=== PATIENT | male | born 1945 | race Caucasian/White ===

== ENCOUNTER 2021-07-17 12:43 | Observation (INO) | payer MEDICARE, OTHER ==
[2021-07-17 14:04] LABS: Absolute Neutrophil Ct (ANC) 6.16 x10^3/uL (1.4-6.9); Basophil (Absolute #) 0.03 x10^3/uL (0-0.4); Eosinophil % 1.1 % (0.00-5.0); Eosinophil (Absolute #) 0.09 x10^3/uL (0-0.5); Hematocrit 46.4 % (42-50); Lymphocyte (Absolute #) 1.04 x10^3/uL (1.0-4.6); Lymphocytes % 12.9 % (24.0-44.0); Mean Cell Volume 87.5 fL (78-100); Mean Corpuscular Hemoglobin 30.2 pg (26-32); Mean Corpuscular Hgb Concent. 34.5 g/dL (32-36); Mean Platelet Volume 10.4 fL (7.5-11.0); Monocyte (Absolute #) 0.73 x10^3/uL (0.0-1.3); Neutrophil % 76.1 % (36.0-66.0); Platelet Count 227 x10^3/uL (150-450); Red Cell Distribution Width 13.4 % (11.5-14.0); White Blood Count 8.1 x10^3/uL (4.0-10.5)
[2021-07-17 14:09] LABS: ALBUMIN 3.6 g/dL (3.5-5.0); ALKALINE PHOSPHATASE 60 U/L (38-126); ANION GAP 12.5 MEQ/L (5-15); BLOOD UREA NITROGEN 10 mg/dL (9-20); CHLORIDE 92 mmol/L (98-107); Carbon Dioxide 26 mmol/L (22-30); Creatinine 1 0.87 mg/dL (0.66-1.25); EST GLOMERULAR FILTRATION RATE > 60.0 ML/MIN; Glucose 83 mg/dL (74-106); Potassium 4.4 mmol/L (3.5-5.1); SGOT/AST 27 U/L (17-59); SGPT/ALT 19 U/L (0-50); SODIUM 126 mmol/L (137-145); Total Protein 6.2 g/dL (6.3-8.2)
[2021-07-17] MEDS ORDERED: Sodium Chloride 0.9% 1000 ML 1,000 ML IV STA (15:19)
[2021-07-17] MEDS ORDERED: Sodium Chloride 0.9% 1000 ML 1,000 ML ONE (15:21)
--- NOTE | 2021-07-17 15:25 | ERPHSYRPT ---
- History of Present Illness Time Seen by Provider: 07/17/21 13:10 Source: patient Exam Limitations: no limitations Patient Subjective Stated Complaint: pt states "I went to [facility] yesterday. I had labs drawn and they called today and said my sodium was low." Triage Nursing Assessment: pt ambulated into the er; pt is axo x4; c/o abdnormal labs; pt states [employer] called with low sodium levels; pt denies pain; pt states he feels weak; clear distant apical heart tone; inspiratory wheezing present in all lobes; strong isabel radial pulses; weak isabel pedal pulses; hypertensive Physician History: Patient is a 76-year-old male presents to our ED as a referral from his primary care doctor. Patient states he had routine labs drawn today per Leigh Ann Miguel. Patient states that he was later notified and advised to come to our ED for evaluation and treatment of abnormal lab value. Patient's sodium was 127. Patient states he has been feeling very weak. Weakness is generalized no focal or lateralizing symptoms. Symptoms are progressive. Symptoms are moderate in intensity. No specific worsening improving factors. Patient denies pain. No nausea no vomiting no diarrhea. No rash. No dizziness. Patient voices no other complaints or concerns at this time. Timing/Duration: today Severity: moderate Modifying Factors: Improves With: nothing Associated Symptoms: weakness (Generalized weakness), No nausea, No vomiting, No shortness of breath, No diaphoresis, No chest pain, No fever Allergies/Adverse Reactions: morphine Adverse Reaction (Verified 07/17/21 13:07) Headache Home Medications: Aspirin 81 gm Chew [Baby Aspirin 81 mg Chew] DAILY 08/06/12 [History] Clonazepam 0.5 mg [Klonopin 0.5 MG] 0.5 mg PO BID 08/06/12 [History] Gabapentin [Neurontin 300 mg] TID 08/06/12 [History] Hydrocodone/Acetaminophen [Vicodin 5-300 mg Tablet] 1 each PO PRN 08/06/12 [History] Metformin HCl 250 mg PO BID 08/06/12 [History] Omeprazole 20 MG [Prilosec 20 mg] 20 mg PO DAILY 08/06/12 [History] Hx Tetanus, Diphtheria Vaccination/Date Given: Yes Hx Influenza Vaccination/Date Given: Yes Hx Pneumococcal Vaccination/Date Given: No Travel Risk - International Travel Have you traveled outside of the country in past 3 weeks: No - Coronavirus Screening Are you exhibiting any of the following symptoms?: No Close contact with a COVID-19 positive Pt in past 14-21 Days: No - Vaccine Status Have you recieved a Covid-19 vaccination: Yes Qm Consultant: Moderna - Vaccination Dates Date of 2cond Vaccination (if applicable): unknown - Review of Systems Constitutional: No Symptoms, No Fever, No Chills Eyes: No Symptoms Ears, Nose, & Throat: No Symptoms Respiratory: No Symptoms, No Cough, No Dyspnea Cardiac: No Symptoms, No Chest Pain, No Edema, No Syncope Abdominal/Gastrointestinal: No Symptoms, No Abdominal Pain, No Nausea, No Vomiting, No Diarrhea Genitourinary Symptoms: No Symptoms, No Dysuria Musculoskeletal: No Symptoms, No Back Pain, No Neck Pain Skin: No Symptoms, No Rash Neurological: No Symptoms, No Dizziness, No Focal Weakness, No Sensory Changes Psychological: No Symptoms Endocrine: No Symptoms Hematologic/Lymphatic: No Symptoms Immunological/Allergic: No Symptoms All Other Systems: Reviewed and Negative - Past Medical History Pertinent Past Medical History: Yes Cardiac History: Hypertension Respiratory History: COPD Endocrine Medical History: Diabetes Type II Psycho-Social History: Anxiety, Bipolar - Past Surgical History Past Surgical History: Yes Other Surgical History: cyst removal on left side of neck - Social History Smoking Status: Current every day smoker Exposure to second hand smoke: Yes Drug Use: none Patient Lives Alone: No - Nursing Vital Signs Nursing Vital Signs: Initial Vital Signs Temperature 97.6 F 07/17/21 12:55 Pulse Rate 72 07/17/21 12:55 Respiratory Rate 20 07/17/21 12:55 Blood Pressure 166/100 07/17/21 12:55 O2 Sat by Pulse Oximetry 96 07/17/21 12:55 Pain Scale Pain Intensity 0 - Physical Exam General Appearance: no apparent distress, alert Eye Exam: PERRL/EOMI, eyes nml inspection Ears, Nose, Throat Exam: normal ENT inspection, TMs normal, pharynx normal, m oist mucous membranes Neck Exam: normal inspection, non-tender, supple, full range of motion Respiratory Exam: normal breath sounds, lungs clear, airway intact, No respiratory distress Cardiovascular Exam: regular rate/rhythm, normal heart sounds, normal peripheral pulses Gastrointestinal/Abdomen Exam: soft, normal bowel sounds, No tenderness, No mass Back Exam: normal inspection, normal range of motion, No CVA tenderness, No vertebral tenderness Extremity Exam: normal inspection, normal range of motion, pelvis stable Neurologic Exam: alert, oriented x 3, cooperative, normal mood/affect, nml cerebellar function, nml station & gait, sensation nml, No motor deficits Skin Exam: normal color, warm, dry, No rash Lymphatic Exam: No adenopathy SpO2 Interpretation: normal SpO2: 98 O2 Delivery: Room Air - Course Nursing assessment & vital signs reviewed: Yes EKG Interpreted by Me: RATE (71), Sinus Rhythm, NORMAL AXIS, NORMAL INTERVALS, 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) Ordered Tests: Active Orders 24 hr Category Date Time Status Up With Assistance ROUTINE Activity 07/17/21 16:50 Active Supervisor Cigar Making Hand STAT Care 07/17/21 13:41 Active Code Status Order ROUTINE Care 07/17/21 16:50 Active EKG-ER Only STAT Care 07/17/21 13:41 Active IV Care Q6H Care 07/17/21 16:50 Active IV Insertion STAT Care 07/17/21 13:41 Active Neuro Checks Q4H Care 07/17/21 16:[address] in Observation ROUTINE Care 07/17/21 16:50 Active Pulse Oximetry (ED) STAT Care 07/17/21 13:41 Active Telemetry q6h Care 07/17/21 16:50 Active Heart-Healthy Diet Diet 07/17/21 Breakfast Active CBC W DIFF AM.LAB Lab 07/18/21 04:00 Ordered CBC W DIFF Stat Lab 07/17/21 13:55 Completed CMP AM.LAB Lab 07/18/21 04:00 Ordered CMP Stat Lab 07/17/21 13:55 Completed TROPONIN Q3H Lab 07/17/21 13:55 Completed TROPONIN Q3H Lab 07/17/21 16:25 Received TROPONIN Q3H Lab 07/17/21 19:45 Ordered TROPONIN Q3H Lab 07/17/21 22:45 Ordered TROPONIN Q3H Lab 07/18/21 01:45 Ordered UA W/RFX CULTURE Stat Lab 07/17/21 15:37 Completed Pulse Oximetry CONTINUOUS RT 07/17/21 16:52 Active Medication Summary Generic Name Dose Route Start Last Admin Trade Name Freq PRN Reason Stop Dose Admin Sodium Chloride 1,000 mls @ 100 mls/hr 07/17/21 17:00 Sodium Chloride 0.9% 1000 Ml IV 08/16/21 16:59 .Q10H EFREN Ondansetron HCl 4 mg 07/17/21 16:50 Ondansetron Hcl 4 Mg/2 Ml Vial IV 08/16/21 16:49 Q6H PRN PRN NAUSEA/VOMITING Discontinued Medications Generic Name Dose Route Start Last Admin Trade Name Freq PRN Reason Stop Dose Admin Sodium Chloride 1,000 mls @ 999 mls/hr 07/17/21 15:19 07/17/21 15:22 Sodium Chloride 0.9% 1000 Ml IV 07/17/21 16:19 999 mls/hr .Q1H1M STA Administration Sodium Chloride Confirm 07/17/21 15:21 Sodium Chloride 0.9% 1000 Ml Administered 07/17/21 15:22 Dose 1,000 mls @ ud .ROUTE .STK-MED ONE Lab/Rad Data: Laboratory Result Diagrams 07/17/21 13:55 07/17/21 13:55 Laboratory Results 07/17/21 07/17/21 07/17/21 Range/Units 15:37 15:30 13:55 WBC (4.0-10.5) x10^3/uL RBC (4.1-5.6) x10^6/uL Hgb (12.5-18.0) g/dL Hct (42-50) % MCV (78-100) fL MCH (26-32) pg MCHC (32-36) g/dL RDW (11.5-14.0) % Plt Count (150-450) x10^3/uL MPV (7.5-11.0) fL Gran % (36.0-66.0) % Immature Gran % (Auto) (0.00-0.4) % Nucleat RBC Rel Count (0.00-0.1) % Eos # (Auto) (0-0.5) x10^3/uL Immature Gran # (Auto) (0.00-0.03) x10^3u/L Absolute Lymphs (auto) (1.0-4.6) x10^3/uL Absolute Monos (auto) (0.0-1.3) x10^3/uL Absolute Nucleated RBC (0.00-0.01) x10^3u/L Lymphocytes % (24.0-44.0) % Monocytes % (0.0-12.0) % Eosinophils % (0.00-5.0) % Basophils % (0.0-0.4) % Absolute Granulocytes (1.4-6.9) x10^3/uL Basophils # (0-0.4) x10^3/uL Sodium (137-145) mmol/L Potassium (3.5-5.1) mmol/L Chloride (98-107) mmol/L Carbon Dioxide (22-30) mmol/L Anion Gap (5-15) MEQ/L BUN (9-20) mg/dL Creatinine (0.66-1.25) mg/dL Estimated GFR ML/MIN Glucose (74-106) mg/dL Calcium (8.4-10.2) mg/dL Total Bilirubin (0.2-1.3) mg/dL AST (17-59) U/L ALT (0-50) U/L Alkaline Phosphatase (38-126) U/L Troponin I 0.021 (0.000-0.034) ng/mL Serum Total Protein (6.3-8.2) g/dL Albumin (3.5-5.0) g/dL Urinalys Dipstick Clnc MAIN LAB Urine Color YELLOW (YELLOW) Urine Appearance CLEAR (CLEAR) Urine pH 7.0 (5-6) Ur Specific [place] 1.010 (1.005-1.025) POC Urine Protein Conf NEGATIVE (Negative) Urine Ketones TRACE (NEGATIVE) Urine Nitrite NEGATIVE (NEGATIVE) Urine Bilirubin NEGATIVE (NEGATIVE) Urine Urobilinogen 1 (0-1) mg/dL Urine Leukocytes NEGATIVE (NEGATIVE) Urine WBC (Auto) NONE (0-5) /HPF Urine RBC (Auto) NONE (0-2) /HPF U Epithel Cells (Auto) NONE (FEW) /HPF Urine Bacteria (Auto) NONE (NEGATIVE) /HPF Urine RBC NEGATIVE (0-5) Eyad/ul Ur Culture Indicated? NO Urine Glucose NEGATIVE (NEGATIVE) mg/dL Influenza Type A Ag NEGATIVE (NEGATIVE) Influenza Type B Ag NEGATIVE (NEGATIVE) RSV (PCR) NEGATIVE (Negative) SARS-CoV-2 (PCR) NEGATIVE (NEGATIVE) 07/17/21 07/17/21 Range/Units 13:55 13:55 WBC 8.1 (4.0-10.5) x10^3/uL RBC 5.30 (4.1-5.6) x10^6/uL Hgb 16.0 (12.5-18.0) g/dL Hct 46.4 (42-50) % MCV 87.5 (78-100) fL MCH 30.2 (26-32) pg MCHC 34.5 (32-36) g/dL RDW 13.4 (11.5-14.0) % Plt Count 227 (150-450) x10^3/uL MPV 10.4 (7.5-11.0) fL Gran % 76.1 H (36.0-66.0) % Immature Gran % (Auto) 0.5 H (0.00-0.4) % Nucleat RBC Rel Count 0.0 (0.00-0.1) % Eos # (Auto) 0.09 (0-0.5) x10^3/uL Immature Gran # (Auto) 0.04 H (0.00-0.03) x10^3u/L Absolute Lymphs (auto) 1.04 (1.0-4.6) x10^3/uL Absolute Monos (auto) 0.73 (0.0-1.3) x10^3/uL Absolute Nucleated RBC 0.00 (0.00-0.01) x10^3u/L Lymphocytes % 12.9 L (24.0-44.0) % Monocytes % 9.0 (0.0-12.0) % Eosinophils % 1.1 (0.00-5.0) % Basophils % 0.4 (0.0-0.4) % Absolute Granulocytes 6.16 (1.4-6.9) x10^3/uL Basophils # 0.03 (0-0.4) x10^3/uL Sodium 126 L (137-145) mmol/L Potassium 4.4 (3.5-5.1) mmol/L Chloride 92 L (98-107) mmol/L Carbon Dioxide 26 (22-30) mmol/L Anion Gap 12.5 (5-15) MEQ/L BUN 10 (9-20) mg/dL Creatinine 0.87 (0.66-1.25) mg/dL Estimated GFR > 60.0 ML/MIN Glucose 83 (74-106) mg/dL Calcium 9.0 (8.4-10.2) mg/dL Total Bilirubin 0.80 (0.2-1.3) mg/dL AST 27 (17-59) U/L ALT 19 (0-50) U/L Alkaline Phosphatase 60 (38-126) U/L Troponin I (0.000-0.034) ng/mL Serum Total Protein 6.2 L (6.3-8.2) g/dL Albumin 3.6 (3.5-5.0) g/dL Urinalys Dipstick Clnc Urine Color (YELLOW) Urine Appearance (CLEAR) Urine pH (5-6) Ur Specific [place] (1.005-1.025) POC Urine Protein Conf (Negative) Urine Ketones (NEGATIVE) Urine Nitrite (NEGATIVE) Urine Bilirubin (NEGATIVE) Urine Urobilinogen (0-1) mg/dL Urine Leukocytes (NEGATIVE) Urine WBC (Auto) (0-5) /HPF Urine RBC (Auto) (0-2) /HPF U Epithel Cells (Auto) (FEW) /HPF Urine Bacteria (Auto) (NEGATIVE) /HPF Urine RBC (0-5) Eyad/ul Ur Culture Indicated? Urine Glucose (NEGATIVE) mg/dL Influenza Type A Ag (NEGATIVE) Influenza Type B Ag (NEGATIVE) RSV (PCR) (Negative) SARS-CoV-2 (PCR) (NEGATIVE) - Progress Progress: improved Progress Note: Patient reassessed. Work-up reveals hyponatremia. Fluids initiated. Patient on free water restriction. Patient complaining of profound generalized weakness. Case discussed with Dr. Stern who accepts admission to observation. Plan of care discussed with patient. He agrees to admission at [facility] for further evaluation and treatment. Portions of this note were created with voice recognition technology. There may be grammatical, spelling, punctuation or sound alike errors 07/17/21 16:55 Discussed with : Vale Will see patient in: hospital (observation) Counseled pt/family regarding: lab results, diagnosis, rad results - Departure Departure Disposition: Observation Clinical Impression: Hyponatremia, Generalized weakness Condition: Stable Critical Care Time: No Referrals: MICHAEL STERN [Primary Care Provider] - Follow up/PCP as directed
[2021-07-17 16:37] LABS: Appearance CLEAR (CLEAR); Bilirubin NEGATIVE (NEGATIVE); Dipstick done @ ? MAIN LAB; Glucose NEGATIVE (NEGATIVE); Ketones TRACE (NEGATIVE); Nitrite NEGATIVE (NEGATIVE); Protein,Urine Dip NEGATIVE (Negative); RBC NEGATIVE Ery/ul (0-5); Urobilinogen 1 mg/dL (0-1)
[2021-07-17 16:42] LABS: Urine Cultured Indicated? NO
[2021-07-17 16:42] LABS: INFLUENZA A NEGATIVE (NEGATIVE); INFLUENZA B NEGATIVE (NEGATIVE); RESPIRATORY SYNCTIAL VIRUS NEGATIVE (Negative); SARS-CoV-2 Xpert Express NEGATIVE (NEGATIVE)
[2021-07-17] MEDS ORDERED: Zofran 4 MG/2 ML VIAL IV PRN (16:50)
[2021-07-17] MEDS: Sodium Chloride 0.9% 1000 ML 1,000 ML IV SCH ×2 (17:09→21:31)
[2021-07-17] MEDS ORDERED: TYLENOL EXTRA STRENGTH 500 MG PO PRN (20:52)
[2021-07-17] MEDS ORDERED: Nicoderm CQ 21 MG TOP SCH (21:00)
[2021-07-17] MEDS: Ditropan 5 MG PO SCH (21:32)
[2021-07-17] MEDS ORDERED: xanAX 0.5 MG PO PRN (22:00)
[2021-07-17] MEDS ORDERED: ZOCOR 20MG PO SCH (22:00)
[2021-07-17] MEDS ORDERED: Glucophage 500 MG PO SCH (22:00)
[2021-07-18 02:45] LABS: Absolute Neutrophil Ct (ANC) 4.39 x10^3/uL (1.4-6.9); Basophil (Absolute #) 0.03 x10^3/uL (0-0.4); Eosinophil (Absolute #) 0.13 x10^3/uL (0-0.5); Hematocrit 48.3 % (42-50); Lymphocyte (Absolute #) 1.26 x10^3/uL (1.0-4.6); Lymphocytes % 19.2 % (24.0-44.0); Mean Cell Volume 90.4 fL (78-100); Mean Corpuscular Hgb Concent. 33.1 g/dL (32-36); Monocyte (Absolute #) 0.72 x10^3/uL (0.0-1.3); Platelet Count 185 x10^3/uL (150-450); Red Blood Count 5.34 x10^6/uL (4.1-5.6); Red Cell Distribution Width 13.5 % (11.5-14.0); White Blood Count 6.6 x10^3/uL (4.0-10.5)
[2021-07-18 02:56] LABS: ALBUMIN 3.2 g/dL (3.5-5.0); ALKALINE PHOSPHATASE 60 U/L (38-126); ANION GAP 9.1 MEQ/L (5-15); BLOOD UREA NITROGEN 8 mg/dL (9-20); CHLORIDE 97 mmol/L (98-107); Calcium 8.3 mg/dL (8.4-10.2); Carbon Dioxide 30 mmol/L (22-30); Creatinine 1 0.88 mg/dL (0.66-1.25); EST GLOMERULAR FILTRATION RATE > 60.0 ML/MIN; Glucose 80 mg/dL (74-106); Potassium 4.1 mmol/L (3.5-5.1); SGOT/AST 28 U/L (17-59); SGPT/ALT 17 U/L (0-50); SODIUM 132 mmol/L (137-145)
[2021-07-18] MEDS: Sodium Chloride 0.9% 1000 ML 1,000 ML IV SCH (05:28)
[2021-07-18] MEDS ORDERED: TADALAFIL 20 MG PO PRN (07:44)
[2021-07-18] MEDS: Ditropan 5 MG PO SCH (07:46)
[2021-07-18] MEDS ORDERED: Glucophage 500 MG PO SCH (08:00)
[2021-07-18] MEDS ORDERED: MEDICATION INTERVENTION MC SCH (08:00)
--- NOTE | 2021-07-18 08:59 | SSS ---
DISCHARGE DIAGNOSIS: HYPONATREMIA. HISTORY: The patient is a 76-year-old white male patient who just had not been feeling good. He presented to the office and seen Leigh Ann Block who thought he might be having a lung infection and ordered some labs and he was found to have a sodium in the mid 120's. He was instructed due to this to go to the emergency room where he was found to be confirmed to be 127 on his sodium. Otherwise no specific problems were found. The patient was admitted to the hospital for IV saline and fluid restriction to correct his hyponatremia. PAST MEDICAL HISTORY: The patient's medical history is significant for anxiety, chronic pain, diabetes mellitus type II, gastroesophageal reflux disease. He has a history of chronic obstructive pulmonary disease, hypertension, diabetes mellitus type II. PAST SURGICAL HISTORY: He had a cyst removed from his back. HOME MEDICATIONS: Alprazolam 0.5 mg twice a day, Abilify 10 mg daily, fluoxetine 20 mg daily, gabapentin 300 mg t.i.d., lovastatin 40 mg at night and Metformin 500 mg b.i.d., omeprazole 20 mg a day, oxybutynin 5 mg t.i.d., Prazosin 2 mg at night, Tadalafil 20 mg PRN for erectile dysfunction. ALLERGIES: MORPHINE. PHYSICAL EXAMINATION: The patient's vital signs in the emergency room showed his temperature to be 97.6F, pulse 72, respiratory rate 20 and blood pressure 166/100. O2 saturation 96%. HEENT: Normocephalic, atraumatic. Pupils equal round reactive to light. Extraocular movements intact. Oropharynx is pink and moist. NECK: Supple without lymphadenopathy, thyromegaly or JVD. CHEST: Clear to auscultation. HEART: Regular rate and rhythm. ABDOMEN: Soft without palpable masses. EXTREMITIES: Without cyanosis, clubbing or edema. NEUROLOGIC: The patient is alert and oriented x3. However, he could not give me the President. He could give me the date, time and place without any difficulty. LAB DATA AND TESTS: The patient's laboratory studies revealed the troponin to be in the normal range 0.025. His CBC is entirely normal. His metabolic panel upon presentation showed his sodium to be 127. His follow up after admission and saline showed him to be up to 132. He had a BUN of 8, creatinine 0.88. His chloride was slightly low at 97. Potassium and CO2 were normal. Liver enzymes were normal. The patient's 12 lead EKG showed right bundle branch block-type pattern with left inferior jeb-block as well and possible left ventricular hypertrophy. HOSPITAL COURSE: After the saline and fluid restriction, the patient's sodium had improved up to 132. The patient reports he uses no salt at home. We felt that he was ready for discharge home again. The patient was feeling well and ready to go. We instructed him to follow up in the office within the next week. We will recheck his sodium. He was asked to add a little light salt to his foods to try to help keep his sodium up. He was instructed that he could drink but not overly indulge in water.
[2021-07-18] MEDS ORDERED: Prozac 20 MG PO SCH (10:00)
[2021-07-18] MEDS ORDERED: Protonix 40MG Tablet PO SCH (10:00)
[2021-07-18] MEDS ORDERED: xanAX 0.5 MG PO SCH (10:00)
[2021-07-18] MEDS ORDERED: NON-FORMULARY ITEM (Omeprazole 20 Mg [Prilosec 20 Mg] 20 MG Capsule.Dr) PO SCH (10:00)
[2021-07-18] MEDS ORDERED: Abilify 10 MG PO SCH (10:00)
[2021-07-18 12:20] VITALS: BP 156/88; PULSE 74; O2SAT 97
[2021-07-18] MEDS ORDERED: Nicoderm CQ 21 MG TOP SCH (22:00)
[2021-07-18] MEDS ORDERED: NON-FORMULARY ITEM (Prazosin Hcl [Prazosin Hcl] 2 MG Capsule) PO SCH (22:00)
== END 2021-07-18 12:45 | disposition home or self-care (01) ==
LOC: ED 12:43 → MED SURG 17:26
PROVIDERS: ADMIT Family Medicine; ATTEND Family Medicine
DX: E87.1 Hypo-osmolality and hyponatremia (principal); F41.9 Anxiety disorder, unspecified; E11.9 Type 2 diabetes mellitus without complications; J44.9 Chronic obstructive pulmonary disease, unspecified; I10 Essential (primary) hypertension; R79.89 Other specified abnormal findings of blood chemistry; Z72.0 Tobacco use; Z79.899 Other long term (current) drug therapy; Z20.828 Contact with and (suspected) exposure to other viral communicable diseases
CPT/HCPCS: 0241U; 36000; 36415; 80053; 81015; 82947; 84484; 85025; 93005; 93041; 94760; 96360; 96361; 99285; 93268; A9270-GY; G0378

== ENCOUNTER 2021-08-28 12:31 | Emergency (ER) | payer MEDICARE, OTHER ==
--- NOTE | 2021-08-28 12:34 | ERPHSYRPT ---
- History of Present Illness Time Seen by Provider: 08/28/21 12:34 Source: patient, EMS Exam Limitations: no limitations Physician History: This is a 76-year-old white male patient of Dr. Stern who was brought into the emergency department by EMS service secondary to shortness of breath that was intermittent and persistent since yesterday. Patient does not use home oxygen therapy. He does have a history of COPD and continues to smoke cigarettes daily. Patient has a history of diabetes, gastroesophageal reflux disease, elevated cholesterol, hypertension, renal disease, anxiety/bipolar disorder. Patient has had recent significant weight loss. Patient denies chest pain. He has no cough. Patient has had his COVID vaccination with boosters. Upon arrival of EMS, patient was placed on 6 L of oxygen via nasal cannula and has an oxygen saturation level of 95%. Patient arrives to the emergency department answering questions. He is awake alert and oriented. He does not appear to be in significant distress. EMS provided the patient with a DuoNeb nebulizer treatment Timing/Duration: yesterday Severity of Dyspnea-Max: moderate Severity of Dyspnea-Current: mild Possible Cause: occasional episodes Modifying Factors: Improves With: activity, exertion, oxygen Associated Symptoms: No chest pain/discomfort Allergies/Adverse Reactions: morphine Adverse Reaction (Verified 07/17/21 13:07) Headache Home Medications: Gabapentin [Neurontin ] 300 mg PO TID 08/06/12 [History] Metformin HCl 500 mg PO BID 08/06/12 [History] Omeprazole 20 MG [Prilosec 20 mg] 20 mg PO DAILY 08/06/12 [History] ALPRAZolam [Alprazolam] 0.5 mg PO BID 07/17/21 [History] Aripiprazole [Abilify] 10 mg PO DAILY 07/17/21 [History] Fluoxetine HCl [Prozac] 20 mg PO DAILY 07/17/21 [History] Lovastatin 40 mg PO HS 07/17/21 [History] Oxybutynin Chloride 5 mg PO TID 07/17/21 [History] Prazosin HCl 2 mg PO HS 07/17/21 [History] Tadalafil [Adcirca] 20 mg PO DAILY PRN PRN 07/17/21 [History] Hx Tetanus, Diphtheria Vaccination/Date Given: Yes Hx Influenza Vaccination/Date Given: Yes Hx Pneumococcal Vaccination/Date Given: No Travel Risk - International Travel Have you traveled outside of the country in past 3 weeks: No - Coronavirus Screening Are you exhibiting any of the following symptoms?: No Close contact with a COVID-19 positive Pt in past 14-21 Days: No - Vaccine Status Have you recieved a Covid-19 vaccination: Yes Relationship Banker: Moderna - Vaccination Dates Date of 2cond Vaccination (if applicable): 05/03/20 Comment: BOOSTER 01/17/21, - Review of Systems Constitutional: No Symptoms Eyes: No Symptoms Ears, Nose, & Throat: No Symptoms Respiratory: Dyspnea, Dyspnea on Exertion (ROMERO) Cardiac: No Symptoms Abdominal/Gastrointestinal: No Symptoms Genitourinary Symptoms: No Symptoms Musculoskeletal: No Symptoms Skin: No Symptoms Neurological: No Symptoms Psychological: No Symptoms Endocrine: No Symptoms Hematologic/Lymphatic: No Symptoms Immunological/Allergic: No Symptoms All Other Systems: Reviewed and Negative - Past Medical History Pertinent Past Medical History: Yes Cardiac History: Hypertension Respiratory History: COPD Endocrine Medical History: Diabetes Type II Musculoskeletal History: Osteoarthritis GI Medical History: No Pertinent History History: Renal Disease Psycho-Social History: Anxiety, Bipolar Male Reproductive Disorders: No Pertinent History - Past Surgical History Past Surgical History: Yes Male Surgical History: Vasectomy Other Surgical History: cyst removal on left side of neck - Social History Smoking Status: Current every day smoker How long have you smoked: 50 YEARS Exposure to second hand smoke: Yes Drug Use: none Patient Lives Alone: No - Nursing Vital Signs Nursing Vital Signs: Initial Vital Signs Temperature 98.4 F 08/28/21 12:34 Pulse Rate 81 08/28/21 12:34 Respiratory Rate 18 08/28/21 12:34 Blood Pressure 153/88 08/28/21 12:34 O2 Sat by Pulse Oximetry 97 08/28/21 12:34 Pain Scale Pain Intensity 0 - Physical Exam General Appearance: no apparent distress, alert Eye Exam: PERRL/EOMI, eyes nml inspection Ears, Nose, Throat Exam: hearing grossly normal, normal ENT inspection Neck Exam: normal inspection, non-tender, supple, full range of motion Respiratory Exam: normal breath sounds, lungs clear, airway intact, No chest tenderness, No respiratory distress Cardiovascular/Chest Exam: normal heart sounds, regular rate/rhythm, normal peripheral pulses Abdominal/Gastrointestinal Exam: soft, normal bowel sounds, No tenderness Rectal Exam: not done Extremity Exam: non-tender, normal range of motion, normal inspection Neurologic Exam: alert, oriented x 3, cooperative, 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, normal mood/affect, sensation nml Skin Exam: normal color, warm, dry Lymphatic Exam: No adenopathy SpO2 Interpretation: normal O2 Delivery: Room Air - Course Nursing assessment & vital signs reviewed: Yes Ordered Tests: Active Orders 24 hr Category Date Time Status EKG-ER Only STAT Care 08/28/21 12:51 Active IV Insertion STAT Care 08/28/21 12:51 Active Pulse Oximetry (ED) STAT Care 08/28/21 12:51 Active ABDOMEN AND PELVIS W&WO CONTRA [CT] Stat Exams 08/28/21 13:05 Completed CHEST 1 VIEW (PORTABLE) Stat Exams 08/28/21 12:52 Completed CBC W DIFF Stat Lab 08/28/21 13:28 Completed CMP Stat Lab 08/28/21 13:28 Completed D-DIMER QUANTITATIVE Stat Lab 08/28/21 13:28 Completed Lactic Acid Stat Lab 08/28/21 13:29 Completed NT PRO BNP Stat Lab 08/28/21 13:28 Completed TROPONIN Q3H Lab 08/28/21 13:00 Ordered TROPONIN Q3H Lab 08/28/21 16:00 Ordered TROPONIN Q3H Lab 08/28/21 19:00 Ordered TROPONIN Q3H Lab 08/28/21 22:00 Ordered TROPONIN Q3H Lab 08/29/21 01:00 Ordered UA W/RFX CULTURE Stat Lab 08/28/21 13:54 Completed Medication Summary Generic Name Dose Route Start Last Admin Trade Name Freq PRN Reason Stop Dose Admin Sodium Chloride 1,000 mls @ 100 mls/hr 08/28/21 14:00 08/28/21 13:56 Sodium Chloride 0.9% 1000 Ml IV 09/27/21 13:59 100 mls/hr .Q10H EFREN Administration Discontinued Medications Generic Name Dose Route Start Last Admin Trade Name Freq PRN Reason Stop Dose Admin Methylprednisolone Sodium 0 mg 08/28/21 12:51 08/28/21 12:56 Succinate 125 mg/ Sterile IV 08/28/21 12:52 125 mg Water 2 ml STAT ONE Administration Furosemide 40 mg 08/28/21 15:32 08/28/21 15:52 Furosemide 40 Mg/4 Ml Vial IV 08/28/21 15:33 40 mg STAT ONE Administration Furosemide Confirm 08/28/21 15:49 Furosemide 40 Mg/4 Ml Vial Administered 08/28/21 15:50 Dose 40 mg .ROUTE .STK-MED ONE Ceftriaxone Sodium/Dextrose 1 g in 50 mls @ 100 mls/hr 08/28/21 15:31 08/28/21 15:52 Rocephin 1 Gm-D5w 50 Ml Bag IV 08/28/21 16:00 100 ml/hr STAT STA 100 mls/hr Administration Ceftriaxone Sodium/Dextrose Confirm 08/28/21 15:49 Rocephin 1 Gm-D5w 50 Ml Bag Administered 08/28/21 15:50 Dose 1 g in 50 mls @ ud IV .STK-MED ONE Methylprednisolone Sodium Succinate Confirm 08/28/21 12:54 Methylprednis Sod Succ 125 Mg/2 Ml Vial Administered 08/28/21 12:55 Dose 125 mg .ROUTE .STK-MED ONE Nicotine 21 mg 08/28/21 15:24 08/28/21 15:27 Nicotine 21 Mg/Patch Patch TOP 08/28/21 15:25 21 mg STAT ONE Administration Sterile Water Confirm 08/28/21 12:54 Water For Injection,Sterile 10 Ml Vial Administered 08/28/21 12:55 Dose 10 ml IJ .STK-MED ONE Lab/Rad Data: Laboratory Result Diagrams 08/28/21 13:28 08/28/21 13:28 Laboratory Results 08/28/21 08/28/21 08/28/21 Range/Units 13:54 13:29 13:28 WBC (4.0-10.5) x10^3/uL RBC (4.1-5.6) x10^6/uL Hgb (12.5-18.0) g/dL Hct (42-50) % MCV (78-100) fL MCH (26-32) pg MCHC (32-36) g/dL RDW (11.5-14.0) % Plt Count (150-450) x10^3/uL MPV (7.5-11.0) fL Gran % (36.0-66.0) % Immature Gran % (Auto) (0.00-0.4) % Nucleat RBC Rel Count (0.00-0.1) % Eos # (Auto) (0-0.5) x10^3/uL Immature Gran # (Auto) (0.00-0.03) x10^3u/L Absolute Lymphs (auto) (1.0-4.6) x10^3/uL Absolute Monos (auto) (0.0-1.3) x10^3/uL Absolute Nucleated RBC (0.00-0.01) x10^3u/L Lymphocytes % (24.0-44.0) % Monocytes % (0.0-12.0) % Eosinophils % (0.00-5.0) % Basophils % (0.0-0.4) % Absolute Granulocytes (1.4-6.9) x10^3/uL Basophils # (0-0.4) x10^3/uL D-Dimer 0.53 H (0.0-0.50) mg/L Sodium (137-145) mmol/L Potassium (3.5-5.1) mmol/L Chloride (98-107) mmol/L Carbon Dioxide (22-30) mmol/L Anion Gap (5-15) MEQ/L BUN (9-20) mg/dL Creatinine (0.66-1.25) mg/dL Estimated GFR ML/MIN Glucose (74-106) mg/dL Lactic Acid 0.7 (0.4-2.0) Calcium (8.4-10.2) mg/dL Total Bilirubin (0.2-1.3) mg/dL AST (17-59) U/L ALT (0-50) U/L Alkaline Phosphatase (38-126) U/L NT-Pro-B Natriuret Pep (0-1800) pg/mL Serum Total Protein (6.3-8.2) g/dL Albumin (3.5-5.0) g/dL Urinalys Dipstick Clnc MAIN LAB Urine Color YELLOW (YELLOW) Urine Appearance CLEAR (CLEAR) Urine pH 7.0 (5-6) Ur Specific [place] 1.015 (1.005-1.025) POC Urine Protein Conf NEGATIVE (Negative) Urine Ketones SMALL-15 (NEGATIVE) Urine Nitrite NEGATIVE (NEGATIVE) Urine Bilirubin NEGATIVE (NEGATIVE) Urine Urobilinogen 0.2 (0-1) mg/dL Urine Leukocytes NEGATIVE (NEGATIVE) Urine WBC (Auto) NONE (0-5) /HPF Urine RBC (Auto) NONE (0-2) /HPF U Epithel Cells (Auto) NONE (FEW) /HPF Urine Bacteria (Auto) NONE (NEGATIVE) /HPF Urine RBC NEGATIVE (0-5) Eyad/ul Ur Culture Indicated? NO Urine Glucose NEGATIVE (NEGATIVE) mg/dL 08/28/21 08/28/21 Range/Units 13:28 13:28 WBC 8.4 (4.0-10.5) x10^3/uL RBC 4.88 (4.1-5.6) x10^6/uL Hgb 14.7 (12.5-18.0) g/dL Hct 44.1 (42-50) % MCV 90.4 (78-100) fL MCH 30.1 (26-32) pg MCHC 33.3 (32-36) g/dL RDW 15.1 H (11.5-14.0) % Plt Count 218 (150-450) x10^3/uL MPV 9.7 (7.5-11.0) fL Gran % 80.3 H (36.0-66.0) % Immature Gran % (Auto) 0.4 (0.00-0.4) % Nucleat RBC Rel Count 0.0 (0.00-0.1) % Eos # (Auto) 0.02 (0-0.5) x10^3/uL Immature Gran # (Auto) 0.03 (0.00-0.03) x10^3u/L Absolute Lymphs (auto) 0.63 L (1.0-4.6) x10^3/uL Absolute Monos (auto) 0.96 (0.0-1.3) x10^3/uL Absolute Nucleated RBC 0.00 (0.00-0.01) x10^3u/L Lymphocytes % 7.5 L (24.0-44.0) % Monocytes % 11.4 (0.0-12.0) % Eosinophils % 0.2 (0.00-5.0) % Basophils % 0.2 (0.0-0.4) % Absolute Granulocytes 6.73 (1.4-6.9) x10^3/uL Basophils # 0.02 (0-0.4) x10^3/uL D-Dimer (0.0-0.50) mg/L Sodium 129 L (137-145) mmol/L Potassium 4.2 (3.5-5.1) mmol/L Chloride 96 L (98-107) mmol/L Carbon Dioxide 27 (22-30) mmol/L Anion Gap 10.3 (5-15) MEQ/L BUN 10 (9-20) mg/dL Creatinine 0.59 L (0.66-1.25) mg/dL Estimated GFR > 60.0 ML/MIN Glucose 102 (74-106) mg/dL Lactic Acid (0.4-2.0) Calcium 8.6 (8.4-10.2) mg/dL Total Bilirubin 0.80 (0.2-1.3) mg/dL AST 19 (17-59) U/L ALT 15 (0-50) U/L Alkaline Phosphatase 65 (38-126) U/L NT-Pro-B Natriuret Pep 882 (0-1800) pg/mL Serum Total Protein 6.5 (6.3-8.2) g/dL Albumin 3.3 L (3.5-5.0) g/dL Urinalys Dipstick Clnc Urine Color (YELLOW) Urine Appearance (CLEAR) Urine pH (5-6) Ur Specific [place] (1.005-1.025) POC Urine Protein Conf (Negative) Urine Ketones (NEGATIVE) Urine Nitrite (NEGATIVE) Urine Bilirubin (NEGATIVE) Urine Urobilinogen (0-1) mg/dL Urine Leukocytes (NEGATIVE) Urine WBC (Auto) (0-5) /HPF Urine RBC (Auto) (0-2) /HPF U Epithel Cells (Auto) (FEW) /HPF Urine Bacteria (Auto) (NEGATIVE) /HPF Urine RBC (0-5) Eyad/ul Ur Culture Indicated? Urine Glucose (NEGATIVE) mg/dL - Progress Progress: improved Air Movement: good Progress Note: 08/28/21 16:16 Chest x-ray shows new left base airspace disease. CAT scan of the abdomen pelvis with and without contrast shows moderate left pleural effusion and a tiny right pleural effusion present with bibasilar compressive atelectasis. There is bilateral noncalcified adrenal masses. The above findings were discussed with the patient. Clinically, the patient is feeling much improved. He has no chest pain. We are waiting the troponin results. There are no acute findings on the patient's EKG. We will discharge the patient to home if the troponin level is normal. Patient will follow-up with his primary care provider to address the patient's symptoms of shortness of breath, and findings of infiltrate on chest x-ray as well as bilateral pleural effusions. Blood Culture(s) Obtained: Yes Antibiotics given: Yes Counseled pt/family regarding: lab results, diagnosis, need for follow-up, rad results - Departure Departure Disposition: Home Clinical Impression: Pulmonary infiltrate in left lung on chest x-ray, Bilateral pleural effusion, Mass of both adrenal glands Condition: Stable Critical Care Time: No Referrals: MICHAEL STERN [Primary Care Provider] - Follow up/PCP as directed Additional Instructions: Take your medication as prescribed. Follow-up with your prescribing physician tomorrow to obtain an appointment for further evaluation and management. Prescriptions: Prednisone 10 mg [Deltasone 10 mg] 10 mg PO TID #12 tablet Azithromycin 250 mg [Zithromax 250 MG TABLET] 250 mg PO ZPACK #6 tablet
[2021-08-28] MEDS ORDERED: solu-MEDROL 125 MG, Sterile H2O 10 ml 2 ML IV ONE ×2 (12:51)
[2021-08-28] MEDS ORDERED: Sterile H2O 10 ml IJ ONE (12:54)
[2021-08-28] MEDS ORDERED: solu-MEDROL ONE (12:54)
--- NOTE | 2021-08-28 13:08 | XRAY ---
Indication: Short of breath. Comparison: July 16, 2021. Portable chest demonstrates new left base airspace disease with small effusion. Remaining heart and right lung unremarkable. Bony thorax intact again with mild osteopenia and degenerative changes.
[2021-08-28 13:38] LABS: Absolute Neutrophil Ct (ANC) 6.73 x10^3/uL (1.4-6.9); Basophil (Absolute #) 0.02 x10^3/uL (0-0.4); Eosinophil % 0.2 % (0.00-5.0); Eosinophil (Absolute #) 0.02 x10^3/uL (0-0.5); Hematocrit 44.1 % (42-50); Hemoglobin 14.7 g/dL (12.5-18.0); Lymphocyte (Absolute #) 0.63 x10^3/uL (1.0-4.6); Lymphocytes % 7.5 % (24.0-44.0); Mean Cell Volume 90.4 fL (78-100); Mean Corpuscular Hemoglobin 30.1 pg (26-32); Mean Corpuscular Hgb Concent. 33.3 g/dL (32-36); Mean Platelet Volume 9.7 fL (7.5-11.0); Monocyte (Absolute #) 0.96 x10^3/uL (0.0-1.3); Monocytes % 11.4 % (0.0-12.0); Neutrophil % 80.3 % (36.0-66.0); Platelet Count 218 x10^3/uL (150-450); Red Blood Count 4.88 x10^6/uL (4.1-5.6); Red Cell Distribution Width 15.1 % (11.5-14.0); White Blood Count 8.4 x10^3/uL (4.0-10.5)
[2021-08-28] MEDS ORDERED: Sodium Chloride 0.9% 1000 ML 1,000 ML ONE (13:54)
[2021-08-28] MEDS ORDERED: Sodium Chloride 0.9% 1000 ML 1,000 ML IV SCH (14:00)
[2021-08-28 14:08] LABS: ALBUMIN 3.3 g/dL (3.5-5.0); ALKALINE PHOSPHATASE 65 U/L (38-126); ANION GAP 10.3 MEQ/L (5-15); BLOOD UREA NITROGEN 10 mg/dL (9-20); CHLORIDE 96 mmol/L (98-107); Calcium 8.6 mg/dL (8.4-10.2); Carbon Dioxide 27 mmol/L (22-30); Creatinine 1 0.59 mg/dL (0.66-1.25); EST GLOMERULAR FILTRATION RATE > 60.0 ML/MIN; Glucose 102 mg/dL (74-106); NT PRO BNP 882 pg/mL (0-1800); Potassium 4.2 mmol/L (3.5-5.1); SGOT/AST 19 U/L (17-59); SGPT/ALT 15 U/L (0-50); SODIUM 129 mmol/L (137-145); Total Protein 6.5 g/dL (6.3-8.2)
[2021-08-28 15:17] LABS: Appearance CLEAR (CLEAR); Bilirubin NEGATIVE (NEGATIVE); Glucose NEGATIVE (NEGATIVE); Ketones SMALL-15 (NEGATIVE); Protein,Urine Dip NEGATIVE (Negative); RBC NEGATIVE Ery/ul (0-5); Specific Gravity 1.015 (1.005-1.025)
[2021-08-28 15:18] LABS: Nitrite NEGATIVE (NEGATIVE); Urine Cultured Indicated? NO; Urobilinogen 0.2 mg/dL (0-1)
[2021-08-28 15:19] LABS: Dipstick done @ ? MAIN LAB
[2021-08-28] MEDS ORDERED: Nicoderm CQ 21 MG TOP ONE (15:24)
--- NOTE | 2021-08-28 15:25 | XRAY ---
Indication: Weight loss. Multiple contiguous axial images obtained through the abdomen and pelvis prior to and following 80 cc Isovue 370 contrast as ordered. Comparison: None Lung bases demonstrate incompletely visualized lingula airspace disease with moderate left/tiny right effusions and mild bibasilar compressive atelectasis. Heart not enlarged. Noncontrasted images demonstrates 1 cm gallstone. No other visceral calcification/calculi. 3.1 x 2.6 cm right and 3.8 x 2.6 cm left noncalcified adrenal masses, not lipid rich adenomas. Noncontrasted stomach and bowel loops appear nonobstructed. Nonvisualization appendix. Mild diffuse scattered colonic fecal debris throughout. No free fluid/air. Postcontrast images demonstrate normal visceral enhancement and renal excretion. Moderately distended urinary bladder either outlet obstruction versus neurogenic bladder. Enlarged prostate gland does impress on the base of the bladder. Remaining liver, gallbladder, pancreas, spleen, adrenal glands, kidneys, ureters, and bladder are unremarkable. Moderate diffuse scattered vascular calcifications. No AAA or pathologic retroperitoneal lymphadenopathy. Osseous structures intact with mild osteopenia and mild degenerative changes throughout the thoracolumbar spine. Incidental bilateral scrotal vasectomy clips. Impression: 1. Incompletely visualized lingula airspace disease. Also moderate left and tiny right pleural effusions with bibasilar compressive atelectasis. 2. Bilateral noncalcified adrenal masses. Partial differential offered includes lipid poor adrenal adenomas, metastasis, and lymphoma. 3. Distended urinary bladder. Rule out outlet obstruction versus neurogenic bladder. Incidental enlarged prostate gland. 4. Incidental mild diffuse fecal stasis, 1 cm gallstone, scattered arteriosclerotic disease, and chronic bony findings.
[2021-08-28] MEDS ORDERED: ROCEPHIN 1 Gm-D5w 50 ml Bag** 1 G/50 ML IVPB IV STA (15:31)
[2021-08-28] MEDS ORDERED: Lasix 40 MG/4 ML IV ONE (15:32)
[2021-08-28] MEDS ORDERED: Lasix 40 MG/4 ML ONE (15:49)
[2021-08-28] MEDS ORDERED: ROCEPHIN 1 Gm-D5w 50 ml Bag** 1 G/50 ML IVPB IV ONE (15:49)
[2021-08-28 16:47] VITALS: BP 164/93; PULSE 88; O2SAT 96
== END 2021-08-28 17:51 | disposition home or self-care (01) ==
LOC: ED 12:31
DX: R91.8 Other nonspecific abnormal finding of lung field (principal); J90 Pleural effusion, not elsewhere classified; E27.8 Other specified disorders of adrenal gland; R06.02 Shortness of breath; J44.9 Chronic obstructive pulmonary disease, unspecified; E11.9 Type 2 diabetes mellitus without complications; E78.5 Hyperlipidemia, unspecified; I10 Essential (primary) hypertension; Z72.0 Tobacco use; Z79.84 Long term (current) use of oral hypoglycemic drugs; Z79.899 Other long term (current) drug therapy; Z99.81 Dependence on supplemental oxygen; Z79.52 Long term (current) use of systemic steroids
CPT/HCPCS: 36000; 36415; 71045; 74178; 80053; 81015; 83605; 83880; 84484; 85025; 85379; 93005; 94760; 96365; 96374; 96375; 99284; J0696; J1940; J2930; A9270-GY

== ENCOUNTER 2021-09-04 13:22 | Observation (INO) | payer MEDICARE, OTHER ==
--- NOTE | 2021-09-04 14:41 | ERPHSYRPT ---
- History of Present Illness Time Seen by Provider: 09/04/21 13:35 Source: patient Exam Limitations: no limitations Patient Subjective Stated Complaint: Pt fell yesterday twisting his right ankle, scraping up his left knee, and twisted his back, pt was able to get up at that time, today pt got out of bed and went to his chair and then he wasn't able to get up due to being too weak Triage Nursing Assessment: Pt brought to the ER by EMS, hypertensive, denies pain, right ankle swollen, left knee scabbed over, pulses normal, denies hitting his head or LOC when he fell, skin n/w/d, doesn't appear to be in any distress Physician History: Patient is a 76-year-old male presents to emergency department for evaluation of generalized weakness. Patient states he fell yesterday twisting his right ankle and scraping his left knee. Patient attributes his fall generalized weakness. Today he got out of bed and sat into his chair. Patient states he was too weak to get up out of his chair. Patient called 911 and arrived to our ED via EMS. Patient has no active pain at this time. However his right ankle is mildly swol mayo. No BHT or LOC. No neck pain. Cervical spine cleared clinically. Symptoms are mild to moderate in intensity. No specific worsening improving factors. Patient voices no other complaints or concerns at this time. Timing/Duration: yesterday Severity: moderate Modifying Factors: Improves With: nothing Associated Symptoms: denies symptoms, No nausea, No vomiting, No shortness of breath, No diaphoresis, No chest pain, No fever, No syncope, No seizure Allergies/Adverse Reactions: morphine Adverse Reaction (Verified 09/04/21 13:37) Headache Home Medications: Metformin HCl 500 mg PO BID 08/06/12 [History] Omeprazole 20 MG [Prilosec 20 mg] 40 mg PO DAILY 08/06/12 [History] ALPRAZolam [Alprazolam] 0.5 mg PO BID 07/17/21 [History] Aripiprazole [Abilify] 10 mg PO DAILY 07/17/21 [History] Fluoxetine HCl [Prozac] 20 mg PO DAILY 07/17/21 [History] Lovastatin 40 mg PO HS 07/17/21 [History] Prazosin HCl 2 mg PO HS 07/17/21 [History] Tadalafil [Adcirca] 20 mg PO DAILY PRN PRN 07/17/21 [History] Aspirin EC 81 mg [Ecotrin 81 mg] 81 mg PO DAILY 09/04/21 [History] Cetirizine HCl 10 mg PO DAILY 09/04/21 [History] Docusate Sodium 100 mg [Docusate Sodium 100 MG] 100 mg PO BID 09/04/21 [History] Lisinopril 10 mg [Zestril 10 MG] 10 mg PO DAILY 09/04/21 [History] Testosterone Cypionate 1 ml IM UD 09/04/21 [History] Hx Tetanus, Diphtheria Vaccination/Date Given: Yes Hx Influenza Vaccination/Date Given: Yes Hx Pneumococcal Vaccination/Date Given: No Travel Risk - International Travel Have you traveled outside of the country in past 3 weeks: No - Coronavirus Screening Are you exhibiting any of the following symptoms?: No Close contact with a COVID-19 positive Pt in past 14-21 Days: No - Vaccine Status Have you recieved a Covid-19 vaccination: Yes Business Assistant: Moderna - Vaccination Dates Date of 2cond Vaccination (if applicable): 05/03/20 Comment: BOOSTER 01/17/21, - Review of Systems Constitutional: No Symptoms, No Fever, No Chills Eyes: No Symptoms Ears, Nose, & Throat: No Symptoms Respiratory: No Symptoms, No Cough, No Dyspnea Cardiac: No Symptoms, No Chest Pain, No Edema, No Syncope Abdominal/Gastrointestinal: No Symptoms, No Abdominal Pain, No Nausea, No Vomiting, No Diarrhea Genitourinary Symptoms: No Symptoms, No Dysuria Musculoskeletal: No Symptoms, No Back Pain, No Neck Pain Skin: No Symptoms, No Rash Neurological: No Symptoms, No Dizziness, No Focal Weakness, No Sensory Changes Psychological: No Symptoms Endocrine: No Symptoms Hematologic/Lymphatic: No Symptoms Immunological/Allergic: No Symptoms All Other Systems: Reviewed and Negative - Past Medical History Pertinent Past Medical History: Yes Cardiac History: Hypertension Respiratory History: COPD Endocrine Medical History: Diabetes Type II Musculoskeletal History: Osteoarthritis GI Medical History: No Pertinent History History: Renal Disease Psycho-Social History: Anxiety, Bipolar Male Reproductive Disorders: No Pertinent History - Past Surgical History Past Surgical History: Yes Male Surgical History: Vasectomy Other Surgical History: cyst removal on left side of neck - Social History Smoking Status: Current every day smoker How long have you smoked: 50 YEARS Exposure to second hand smoke: Yes Drug Use: none Patient Lives Alone: No - Nursing Vital Signs Nursing Vital Signs: Initial Vital Signs Temperature 97.6 F 09/04/21 13:24 Pulse Rate 63 09/04/21 13:24 Blood Pressure 145/82 09/04/21 13:24 O2 Sat by Pulse Oximetry 98 09/04/21 13:24 Pain Scale Pain Intensity 0 - Physical Exam General Appearance: no apparent distress, alert Eye Exam: PERRL/EOMI, eyes nml inspection Ears, Nose, Throat Exam: normal ENT inspection, TMs normal, pharynx normal, moist mucous membranes Neck Exam: normal inspection, non-tender, supple, full range of motion Respiratory Exam: normal breath sounds, lungs clear, No respiratory distress Cardiovascular Exam: regular rate/rhythm, normal heart sounds, normal peripheral pulses Gastrointestinal/Abdomen Exam: soft, normal bowel sounds, No tenderness, No mass Back Exam: normal inspection, normal range of motion, No CVA tenderness, No vertebral tenderness Extremity Exam: normal inspection, normal range of motion, pelvis stable, other (Mild swelling to right ankle. No limited range of motion. Overlying soft tissue intact. Extremity neurovascular intact distally. Compartments are soft. Cap refill less than 2 seconds.) Neurologic Exam: alert, oriented x 3, cooperative, normal mood/affect, nml ce rebellar function, nml station & gait, sensation nml, No motor deficits Skin Exam: normal color, warm, dry, No rash Lymphatic Exam: No adenopathy SpO2 Interpretation: normal SpO2: 98 O2 Delivery: Room Air - Course Nursing assessment & vital signs reviewed: Yes EKG Interpreted by Me: RATE (66), Sinus Rhythm, NORMAL AXIS, NORMAL INTERVALS - Radiology Exams Ankle X-ray Interpretation: Teleradiologist Report (No fractures dislocations of the right ankle) Chest X-ray Interpretation: Teleradiologist Report (No acute cardiopulmonary disease) Ordered Tests: Active Orders 24 hr Category Date Time Status [employer] STAT Care 09/04/21 14:30 Active EKG-ER Only STAT Care 09/04/21 14:30 Active IV Insertion STAT Care 09/04/21 14:30 Active Pulse Oximetry (ED) STAT Care 09/04/21 14:30 Active ANKLE (3 VIEWS) Stat Exams 09/04/21 14:38 Completed CHEST 1 VIEW (PORTABLE) Stat Exams 09/04/21 14:30 Completed CBC W DIFF Stat Lab 09/04/21 14:36 Completed CMP Stat Lab 09/04/21 14:36 Completed TROPONIN Q3H Lab 09/04/21 14:36 Completed TROPONIN Q3H Lab 09/04/21 17:30 Ordered TROPONIN Q3H Lab 09/04/21 20:30 Ordered TROPONIN Q3H Lab 09/04/21 23:30 Ordered TROPONIN Q3H Lab 09/05/21 02:30 Ordered UA W/RFX CULTURE Stat Lab 09/04/21 15:03 Completed Transfer Order Routine Transfer 09/04/21 Ordered Lab/Rad Data: Laboratory Result Diagrams 09/04/21 14:36 09/04/21 14:36 Laboratory Results 09/04/21 09/04/21 09/04/21 Range/Units 15:03 14:45 14:36 WBC (4.0-10.5) x10^3/uL RBC (4.1-5.6) x10^6/uL Hgb (12.5-18.0) g/dL Hct (42-50) % MCV (78-100) fL MCH (26-32) pg MCHC (32-36) g/dL RDW (11.5-14.0) % Plt Count (150-450) x10^3/uL MPV (7.5-11.0) fL Gran % (36.0-66.0) % Immature Gran % (Auto) (0.00-0.4) % Nucleat RBC Rel Count (0.00-0.1) % Eos # (Auto) (0-0.5) x10^3/uL Immature Gran # (Auto) (0.00-0.03) x10^3u/L Absolute Lymphs (auto) (1.0-4.6) x10^3/uL Absolute Monos (auto) (0.0-1.3) x10^3/uL Absolute Nucleated RBC (0.00-0.01) x10^3u/L Lymphocytes % (24.0-44.0) % Monocytes % (0.0-12.0) % Eosinophils % (0.00-5.0) % Basophils % (0.0-0.4) % Absolute Granulocytes (1.4-6.9) x10^3/uL Basophils # (0-0.4) x10^3/uL Sodium (137-145) mmol/L Potassium (3.5-5.1) mmol/L Chloride (98-107) mmol/L Carbon Dioxide (22-30) mmol/L Anion Gap (5-15) MEQ/L BUN (9-20) mg/dL Creatinine (0.66-1.25) mg/dL Estimated GFR ML/MIN Glucose (74-106) mg/dL Calcium (8.4-10.2) mg/dL Total Bilirubin (0.2-1.3) mg/dL AST (17-59) U/L ALT (0-50) U/L Alkaline Phosphatase (38-126) U/L Troponin I < 0.012 (0.000-0.034) ng/mL Serum Total Protein (6.3-8.2) g/dL Albumin (3.5-5.0) g/dL Urinalys Dipstick Clnc MAIN LAB Urine Color YELLOW (YELLOW) Urine Appearance CLEAR (CLEAR) Urine pH 7.0 (5-6) Ur Specific [place] 1.015 (1.005-1.025) POC Urine Protein Conf NEGATIVE (Negative) Urine Ketones NEGATIVE (NEGATIVE) Urine Nitrite NEGATIVE (NEGATIVE) Urine Bilirubin NEGATIVE (NEGATIVE) Urine Urobilinogen 0.2 (0-1) mg/dL Urine Leukocytes NEGATIVE (NEGATIVE) Urine WBC (Auto) NONE (0-5) /HPF Urine RBC (Auto) NONE SEEN (0-2) /HPF U Epithel Cells (Auto) OCCASIONAL (FEW) /HPF Urine Bacteria (Auto) NONE SEEN (NEGATIVE) /HPF Urine RBC NEGATIVE (0-5) Eyad/ul Ur Culture Indicated? NO Urine Glucose NEGATIVE (NEGATIVE) mg/dL Influenza Type A Ag NEGATIVE (NEGATIVE) Influenza Type B Ag NEGATIVE (NEGATIVE) RSV (PCR) NEGATIVE (Negative) SARS-CoV-2 (PCR) NEGATIVE (NEGATIVE) 09/04/21 09/04/21 Range/Units 14:36 14:36 WBC 7.7 (4.0-10.5) x10^3/uL RBC 5.04 (4.1-5.6) x10^6/uL Hgb 15.2 (12.5-18.0) g/dL Hct 46.3 (42-50) % MCV 91.9 (78-100) fL MCH 30.2 (26-32) pg MCHC 32.8 (32-36) g/dL RDW 14.6 H (11.5-14.0) % Plt Count 308 (150-450) x10^3/uL MPV 9.6 (7.5-11.0) fL Gran % 82.7 H (36.0-66.0) % Immature Gran % (Auto) 0.4 (0.00-0.4) % Nucleat RBC Rel Count 0.0 (0.00-0.1) % Eos # (Auto) 0.06 (0-0.5) x10^3/uL Immature Gran # (Auto) 0.03 (0.00-0.03) x10^3u/L Absolute Lymphs (auto) 0.66 L (1.0-4.6) x10^3/uL Absolute Monos (auto) 0.55 (0.0-1.3) x10^3/uL Absolute Nucleated RBC 0.00 (0.00-0.01) x10^3u/L Lymphocytes % 8.6 L (24.0-44.0) % Monocytes % 7.2 (0.0-12.0) % Eosinophils % 0.8 (0.00-5.0) % Basophils % 0.3 (0.0-0.4) % Absolute Granulocytes 6.33 (1.4-6.9) x10^3/uL Basophils # 0.02 (0-0.4) x10^3/uL Sodium 130 L (137-145) mmol/L Potassium 4.2 (3.5-5.1) mmol/L Chloride 95 L (98-107) mmol/L Carbon Dioxide 29 (22-30) mmol/L Anion Gap 10.6 (5-15) MEQ/L BUN 16 (9-20) mg/dL Creatinine 0.75 (0.66-1.25) mg/dL Estimated GFR > 60.0 ML/MIN Glucose 127 H (74-106) mg/dL Calcium 8.3 L (8.4-10.2) mg/dL Total Bilirubin 0.40 (0.2-1.3) mg/dL AST 34 (17-59) U/L ALT 32 (0-50) U/L Alkaline Phosphatase 79 (38-126) U/L Troponin I (0.000-0.034) ng/mL Serum Total Protein 6.0 L (6.3-8.2) g/dL Albumin 3.1 L (3.5-5.0) g/dL Urinalys Dipstick Clnc Urine Color (YELLOW) Urine Appearance (CLEAR) Urine pH (5-6) Ur Specific [place] (1.005-1.025) POC Urine Protein Conf (Negative) Urine Ketones (NEGATIVE) Urine Nitrite (NEGATIVE) Urine Bilirubin (NEGATIVE) Urine Urobilinogen (0-1) mg/dL Urine Leukocytes (NEGATIVE) Urine WBC (Auto) (0-5) /HPF Urine RBC (Auto) (0-2) /HPF U Epithel Cells (Auto) (FEW) /HPF Urine Bacteria (Auto) (NEGATIVE) /HPF Urine RBC (0-5) Eyad/ul Ur Culture Indicated? Urine Glucose (NEGATIVE) mg/dL Influenza Type A Ag (NEGATIVE) Influenza Type B Ag (NEGATIVE) RSV (PCR) (Negative) SARS-CoV-2 (PCR) (NEGATIVE) - Progress Progress: improved Progress Note: Patient reassessed. Work-up reveals hyponatremia. Patient states he is too weak to go home. Patient states his cannot help him. Case discussed with Dr. Stern who states patient may require rehab or possible prison. Patient states that he is willing to go to rehab or prison if needed to increase his strength. COVID test negative. Patient agrees to admission [facility] for further evaluation and treatment. Portions of this note were created with voice recognition technology. There may be grammatical, spelling, punctuation or sound alike errors 09/04/21 16:19 Discussed with : Vale Will see patient in: hospital (observation) Counseled pt/family regarding: lab results, diagnosis, rad results - Departure Departure Disposition: Observation Clinical Impression: Hyponatremia, Generalized weakness Condition: Stable Critical Care Time: No Referrals: MICHAEL STERN [Primary Care Provider] - Follow up/PCP as directed
[2021-09-04 14:43] LABS: Absolute Neutrophil Ct (ANC) 6.33 x10^3/uL (1.4-6.9); Basophil (Absolute #) 0.02 x10^3/uL (0-0.4); Eosinophil % 0.8 % (0.00-5.0); Eosinophil (Absolute #) 0.06 x10^3/uL (0-0.5); Hematocrit 46.3 % (42-50); Hemoglobin 15.2 g/dL (12.5-18.0); Lymphocyte (Absolute #) 0.66 x10^3/uL (1.0-4.6); Lymphocytes % 8.6 % (24.0-44.0); Mean Cell Volume 91.9 fL (78-100); Mean Corpuscular Hemoglobin 30.2 pg (26-32); Mean Corpuscular Hgb Concent. 32.8 g/dL (32-36); Mean Platelet Volume 9.6 fL (7.5-11.0); Monocyte (Absolute #) 0.55 x10^3/uL (0.0-1.3); Monocytes % 7.2 % (0.0-12.0); Neutrophil % 82.7 % (36.0-66.0); Platelet Count 308 x10^3/uL (150-450); Red Blood Count 5.04 x10^6/uL (4.1-5.6); Red Cell Distribution Width 14.6 % (11.5-14.0); White Blood Count 7.7 x10^3/uL (4.0-10.5)
[2021-09-04 14:57] LABS: ALBUMIN 3.1 g/dL (3.5-5.0); ALKALINE PHOSPHATASE 79 U/L (38-126); ANION GAP 10.6 MEQ/L (5-15); BLOOD UREA NITROGEN 16 mg/dL (9-20); CHLORIDE 95 mmol/L (98-107); Calcium 8.3 mg/dL (8.4-10.2); Carbon Dioxide 29 mmol/L (22-30); Creatinine 1 0.75 mg/dL (0.66-1.25); EST GLOMERULAR FILTRATION RATE > 60.0 ML/MIN; Glucose 127 mg/dL (74-106); Potassium 4.2 mmol/L (3.5-5.1); SGOT/AST 34 U/L (17-59); SGPT/ALT 32 U/L (0-50); SODIUM 130 mmol/L (137-145)
[2021-09-04 15:04] LABS: Bacteria NONE SEEN /HPF (NEGATIVE); Epithelial Cells OCCASIONAL /HPF (FEW); RBC NONE SEEN /HPF (0-2); Urine Cultured Indicated? NO
[2021-09-04 15:07] LABS: Appearance CLEAR (CLEAR); Bilirubin NEGATIVE (NEGATIVE); Dipstick done @ ? MAIN LAB; Glucose NEGATIVE (NEGATIVE); Ketones NEGATIVE (NEGATIVE); Nitrite NEGATIVE (NEGATIVE); Protein,Urine Dip NEGATIVE (Negative); RBC NEGATIVE Ery/ul (0-5); Specific Gravity 1.015 (1.005-1.025); Urobilinogen 0.2 mg/dL (0-1)
[2021-09-04 15:17] LABS: INFLUENZA A NEGATIVE (NEGATIVE); INFLUENZA B NEGATIVE (NEGATIVE); RESPIRATORY SYNCTIAL VIRUS NEGATIVE (Negative); SARS-CoV-2 Xpert Express NEGATIVE (NEGATIVE)
--- NOTE | 2021-09-04 15:26 | XRAY ---
Exam: AP upright portable chest film from 09/04/2021. Comparison: AP upright portable chest film from 08/28/2021. Indication: 76-year-old male with weakness; rule out pneumonia. Findings: The heart size appears within normal limits. There appears to be some mediastinal shift toward the left and perhaps mild elevation of the left hemidiaphragm which may be due to left lower lobe atelectasis. In addition, there is some hazy airspace disease within the visualized left lower lung field which appear to be located primarily within the lingula anteriorly on the CT abdomen/pelvis from 08/28/2021. This does not appear improved. I also suspect some mild left basilar pleural effusion representing no change. Consider further evaluation with bronchoscopy or CT of the chest with IV contrast. The right lung field appears clear. The left lung apex is clear. There is no pneumothorax. No pleural effusion is seen on the right. Degenerative changes are seen within the lower thoracic spine. Impression: 1. I again see hazy airspace disease throughout the lower half of the left lung, as well as mild left basilar pleural effusion. This appears relatively similar to 08/28/2021. 2. There also appears to be some shift of the heart toward the left and mild elevation of left hemidiaphragm which would suggest some concomitant left lower lobe atelectasis. Consider further evaluation with bronchoscopy or a CT of the chest with IV contrast when the patient is able. 3. No other acute cardiopulmonary disease is seen.
--- NOTE | 2021-09-04 15:30 | XRAY ---
Exam: 3 views of the right ankle from 09/04/2021. Comparison: None. Indication: Patient fell and twisted right ankle 2 days ago; swelling. Findings: AP, oblique, and lateral radiographs are submitted for evaluation. I see no acute fracture of the distal right tibia or fibula. There is moderate soft tissue swelling overlying the lateral malleolus. The right ankle mortise is well-preserved and appears uniform. There is a high plantar arch. A minimal plantar right calcaneal spur is seen. Impression: 1. No acute fracture or dislocation of the right ankle is seen. 2. Moderate soft tissue swelling is seen overlying the lateral malleolus of the right ankle. The right ankle mortise appears uniform on these nonstressed images. 3. Tiny plantar right calcaneal spur.
[2021-09-04] MEDS: Sodium Chloride 0.9% 1000 ML 1,000 ML IV SCH (17:26)
[2021-09-04] MEDS ORDERED: NON-FORMULARY ITEM (Cetirizine Hcl [Cetirizine Hcl] 10 MG Tablet) PO PRN (17:29)
[2021-09-04] MEDS ORDERED: TYLENOL 325 MG PO PRN (17:29)
[2021-09-04] MEDS ORDERED: CLARITIN 10 MG PO PRN (17:35)
[2021-09-04] MEDS: Glucophage 500 MG PO SCH (17:50)
[2021-09-04] MEDS: ZOCOR 20MG PO SCH (17:50)
[2021-09-04] MEDS ORDERED: NON-FORMULARY ITEM (Lovastatin [Lovastatin] 40 MG Tablet) PO SCH (18:00)
[2021-09-04] MEDS: Abilify 10 MG PO SCH (22:01)
[2021-09-04] MEDS: xanAX 0.25 MG PO SCH (22:01)
[2021-09-04] MEDS: Docusate Sodium 100 MG PO SCH (22:03)
[2021-09-05] MEDS: Sodium Chloride 0.9% 1000 ML 1,000 ML IV SCH ×2 (02:32→12:32)
[2021-09-05 04:25] LABS: ALBUMIN 2.9 g/dL (3.5-5.0); ALKALINE PHOSPHATASE 69 U/L (38-126); ANION GAP 9.8 MEQ/L (5-15); BLOOD UREA NITROGEN 14 mg/dL (9-20); CHLORIDE 97 mmol/L (98-107); Calcium 8.5 mg/dL (8.4-10.2); Carbon Dioxide 27 mmol/L (22-30); Creatinine 1 0.64 mg/dL (0.66-1.25); EST GLOMERULAR FILTRATION RATE > 60.0 ML/MIN; Glucose 84 mg/dL (74-106); Potassium 4.1 mmol/L (3.5-5.1); SGOT/AST 31 U/L (17-59); SGPT/ALT 31 U/L (0-50); SODIUM 129 mmol/L (137-145); Total Protein 5.5 g/dL (6.3-8.2)
[2021-09-05 05:25] LABS: Absolute Neutrophil Ct (ANC) 7.37 x10^3/uL (1.4-6.9); Basophil (Absolute #) 0.03 x10^3/uL (0-0.4); Eosinophil % 1.4 % (0.00-5.0); Eosinophil (Absolute #) 0.14 x10^3/uL (0-0.5); Hematocrit 46.1 % (42-50); Hemoglobin 15.4 g/dL (12.5-18.0); Lymphocyte (Absolute #) 1.19 x10^3/uL (1.0-4.6); Lymphocytes % 12.3 % (24.0-44.0); Mean Cell Volume 89.9 fL (78-100); Mean Corpuscular Hgb Concent. 33.4 g/dL (32-36); Mean Platelet Volume 9.7 fL (7.5-11.0); Monocytes % 9.3 % (0.0-12.0); Neutrophil % 76.1 % (36.0-66.0); Platelet Count 310 x10^3/uL (150-450); Red Blood Count 5.13 x10^6/uL (4.1-5.6); Red Cell Distribution Width 14.6 % (11.5-14.0); White Blood Count 9.7 x10^3/uL (4.0-10.5)
[2021-09-05] MEDS: Prozac 20 MG PO SCH (08:23)
[2021-09-05] MEDS: Glucophage 500 MG PO SCH ×2 (08:23→17:12)
[2021-09-05] MEDS: Protonix 40MG Tablet PO SCH (08:24)
[2021-09-05] MEDS: Zestril 10 MG PO SCH (08:24)
[2021-09-05] MEDS: ECOTRIN 81 MG PO SCH (08:24)
[2021-09-05] MEDS: xanAX 0.25 MG PO SCH ×2 (08:24→23:02)
[2021-09-05] MEDS: Docusate Sodium 100 MG PO SCH ×2 (08:24→23:02)
[2021-09-05] MEDS ORDERED: NON-FORMULARY ITEM (Omeprazole 20 Mg [Prilosec 20 Mg] 20 MG Capsule.Dr) PO SCH (10:00)
[2021-09-05] MEDS: ZOCOR 20MG PO SCH (17:12)
[2021-09-05] MEDS: Abilify 10 MG PO SCH (23:01)
[2021-09-06] MEDS: Sodium Chloride 0.9% 1000 ML 1,000 ML IV SCH (02:16)
[2021-09-06] MEDS: Glucophage 500 MG PO SCH ×2 (07:58→17:58)
--- NOTE | 2021-09-06 08:32 | SSS ---
DISCHARGE DIAGNOSES: 1) WEIGHT LOSS. 2) WEAKNESS. 3) RECENT FALL. HISTORY: The patient is a 76-year-old white male patient who has been becoming weak over the past several days, particularly that he has been having weight loss over the past several months. The patient has been evaluated and not found to have any particular acute cancer that might be causing his weight loss. The patient apparently had gotten to the point where he was unable to get up out of a chair to go to the bathroom. He had a bowel movement and his summoned EMS because she was unable to help him to get up to go to the bathroom and get cleaned up. The patient had previously had fallen over the past couple of days and twisted his ankle. He had an abrasion to his left knee. Otherwise, the patient's evaluation was essentially negative. PAST MEDICAL HISTORY: His previous history is significant for diabetes mellitus type II, chronic obstructive pulmonary disease, osteoarthritis, anxiety, bipolar, depression. PAST SURGICAL HISTORY: He has had a vasectomy. He had cyst removed from his neck. HOME MEDICATIONS: Currently include Metformin 500 mg b.i.d., omeprazole 40 mg daily, Alprazolam 0.5 mg twice a day, Abilify 10 mg a day, Prozac 20 mg a day, lovastatin 40 mg a day, Prazosin 2 mg at night, tadalafil 20 mg daily PRN, aspirin 81 mg a day, cetirizine 10 mg a day, docusate sodium 100 mg a day, lisinopril 10 mg a day. He takes a testosterone shot once a month. ALLERGIES: MORPHINE. PHYSICAL EXAMINATION: His evaluation in the emergency room showed temperature 97.6F, pulse 63 and blood pressure 145/82. O2 saturation 98%. HEENT: Normocephalic, atraumatic. Pupils equal round reactive to light. Extraocular movements intact. Oropharynx is pink and moist. He is wearing dentures and very ill-fitting presently as the top dentures appear to be falling out at times when he is talking. NECK: Supple without lymphadenopathy, thyromegaly or JVD. CHEST: Clear to auscultation. HEART: Regular rate and rhythm without murmurs, rubs or gallops. ABDOMEN: Soft. No palpable masses. EXTREMITIES: Without cyanosis, clubbing or edema. NEUROLOGIC: The patient is alert and oriented x3 with no focal deficits noted. LAB DATA AND TESTS: Showed him in the emergency room to be negative for influenza, respiratory syncytial virus and COVID. His UA was normal. His metabolic panel showed sodium to be slightly low at 130. His sugar nonfasting 127, BUN 16, creatinine 0.75. Liver enzymes were normal. CBC was normal. His troponins had shown slight increase from 0.02 to 0.038 which is minimally above normal for our laboratory. He had x-rays showing no acute fracture of the ankle, some soft tissue swelling seen over the lateral malleolus of the right ankle. He had a portable chest x-ray showing left basilar pleural effusion and some mild air space disease. It is otherwise consistent for atelectasis. No other cardiopulmonary disease is noted. He had a 12-lead EKG performed which showed what appeared to be some PAC's present and possible left atrial enlargement and he had bifascicular block. HOSPITAL COURSE: The patient was admitted to the [facility] and was monitored with telemetry and given initial IV fluid hydration to see if it would improve his overall well-being. The patient had physical therapy and occupational therapy evaluations performed. He was able to walk with a walker with assist of one. The plan presently is for the patient to go rehab for strengthening to hopefully go back home again once he is able to ambulate without difficulty with the walker. His is in agreement with him going to the rehab for further evaluation, treatment and hopeful return home. The patient's medications have been changed to reduce his Alprazolam to 0.25 mg. His Abilify was reduced to 5 mg. He was taken off of Prazosin and Tadalafil was decreased to 10 mg in attempt to reduce his overall pharmacologic load in hopes of reducing his overall weakness.
[2021-09-06] MEDS: Protonix 40MG Tablet PO SCH (09:44)
[2021-09-06] MEDS: Docusate Sodium 100 MG PO SCH ×2 (09:44→09:47)
[2021-09-06] MEDS: ECOTRIN 81 MG PO SCH (09:44)
[2021-09-06] MEDS: xanAX 0.25 MG PO SCH (09:44)
[2021-09-06] MEDS: Zestril 10 MG PO SCH (09:44)
[2021-09-06] MEDS: Prozac 20 MG PO SCH (09:44)
[2021-09-06 12:27] VITALS: O2SAT 94
[2021-09-06 16:13] VITALS: BP 161/75; PULSE 71
[2021-09-06] MEDS ORDERED: Nicoderm CQ 21 MG TOP SCH (17:00)
[2021-09-06] MEDS: ZOCOR 20MG PO SCH (17:58)
== END 2021-09-06 18:15 ==
LOC: ED 13:22 → MED SURG 16:40
PROVIDERS: ADMIT Family Medicine; ATTEND Family Medicine
DX: R63.4 Abnormal weight loss (principal); R53.1 Weakness; W18.30XA Fall on same level, unspecified, initial encounter; S93.401A Sprain of unspecified ligament of right ankle, initial encounter; S80.212A Abrasion, left knee, initial encounter; E11.9 Type 2 diabetes mellitus without complications; J44.9 Chronic obstructive pulmonary disease, unspecified; E87.1 Hypo-osmolality and hyponatremia; I10 Essential (primary) hypertension; R77.8 Other specified abnormalities of plasma proteins; Z72.0 Tobacco use; Z79.899 Other long term (current) drug therapy; Z20.828 Contact with and (suspected) exposure to other viral communicable diseases
CPT/HCPCS: 0241U; 36000; 36415; 71045; 73610; 80053; 81015; 82947; 84484; 85025; 93005; 93041; 93268; 94760; 97110; 97161; 97165; 97530; 99284; G0378; A9270-GY